=== PATIENT | male | born 1980 | race Caucasian/White ===

== ENCOUNTER 2018-04-01 15:53 | Emergency (ER) | payer SELFPAY, OTHER | END 2018-04-01 18:20 | disposition left against medical advice (07) | LOC: FTE 15:53 | DX: Z53.21 Procedure and treatment not carried out due to patient leaving prior to being seen by health care provider (principal) ==

== ENCOUNTER 2018-08-10 01:02 | Emergency (ER) | payer OTHER ==
[2018-08-10] MEDS ORDERED: CLINDAMYCIN 600 MG INJ IM (02:00)
[2018-08-10] MEDS: MUPIROCIN 2% 22 GM OINT TOP (02:12)
[2018-08-10] MEDS: CLINDAMYCIN 300 MG INJ IM (02:12)
== END 2018-08-10 02:29 | disposition home or self-care (01) ==
LOC: FTE 02:29
DX: L08.9 Local infection of the skin and subcutaneous tissue, unspecified (principal); B95.8 Unspecified staphylococcus as the cause of diseases classified elsewhere
CPT/HCPCS: 96372; 99284-25